=== PATIENT | female | born 2000 | race African-American/Black ===

== ENCOUNTER 2023-05-28 20:50 | Emergency (ER) | payer OTHER ==
[2023-05-28] MEDS ORDERED: Acetaminophen 500 MG TAB ONE (22:28)
== END 2023-05-28 23:03 | disposition home or self-care (01) ==
LOC: CSHERS 20:50
DX: O99.891 Other specified diseases and conditions complicating pregnancy (principal); M54.50 Low back pain, unspecified; O20.8 Other hemorrhage in early pregnancy; W19.XXXA Unspecified fall, initial encounter; Z3A.01 Less than 8 weeks gestation of pregnancy
CPT/HCPCS: 76856